=== PATIENT | female | born 1990 | race Caucasian/White ===

== ENCOUNTER 2017-11-01 09:41 | Emergency (ER) | payer OTHER ==
[~2017-11-01] VITALS: Ht 152.4 cm; Wt 70.3 kg
[2017-11-01 10:22] LABS: microscopic required? NO
[2017-11-01 10:38] LABS: CALCIUM 8.2 mg/dL (8.5-10.1); CARBON DIOXIDE 25.1 mmol/L (21-32); CHLORIDE SERUM 107 mmol/L (98-107); CREATININE SERUM 0.7 mg/dL (0.6-1.0); GFR1 > 60 mL/min; GLUCOSE SERUM 96 mg/dL (74-106); POTASSIUM SERUM 3.7 mmol/L (3.5-5.1); SODIUM SERUM 140 mmol/L (136-145)
[2017-11-01 10:43] LABS: ALKALINE PHOSPHATASE 73 U/L (46-116); ALT/SGPT 32 U/L (14-59); AMYLASE 30 U/L (25-115); AST/SGOT 15 U/L (15-37); BASOPHIL % 0.5 % (0-2); BILIRUBIN TOTAL 0.3 mg/dL (0.20-1.00); LIPASE 74 IU/L (73-393); PLATELET COUNT 186 x10^3mcL (130-400); RED CELL DISTRIBUTION WIDTH 12.9 % (11.5-14.5); TOTAL PROTEIN, SERUM 6.5 g/dL (6.4-8.2)
[2017-11-01 10:45] LABS: ALBUMIN 3.3 g/dL (3.4-5.0)
[2017-11-01 10:50] LABS: urine erythrocyte NEGATIVE (NEGATIVE)
[2017-11-01 13:13] VITALS: BP 109/57
== END 2017-11-01 13:13 | disposition home or self-care (01) ==
LOC: ED 09:41
PROVIDERS: Emergency Medicine
DX: R10.31 Right lower quadrant pain (principal); R10.33 Periumbilical pain; R11.0 Nausea
CPT/HCPCS: 83880; J1885; J2405; J7030